=== PATIENT | male | born 1955 | race Caucasian/White ===

== ENCOUNTER 2021-07-14 14:53 | Day surgery (SDC) | payer MEDICARE ==
[2021-07-14] MEDS ORDERED: Depo-Medrol 40 MG/ML IM ONE (14:54)
[2021-07-14] MEDS ORDERED: Sodium Chloride 0.9% 10 ML FLUSH Syringe IJ ONE (14:54)
[2021-07-14] MEDS ORDERED: BENADRYL 50 MG/ML ONE (16:22)
[2021-07-14] MEDS ORDERED: Lactated Ringers 1,000 ML IV ONE (17:26)
[2021-07-14] MEDS ORDERED: DIPRIVAN 200 MG/20 ML IV ONE (17:58)
--- NOTE | 2021-07-14 19:05 | XRAY ---
Indication: Right L3-L5 transforaminal ASIA. Intraoperative fluoroscopy provided for 36 seconds. 4 digital spot image submitted for interpretation demonstrates posterior needle tips projecting over the right L3 and L4 nerve roots. Small amount of contrast injected for needle tip placement. Correlate with intraoperative findings/report.
--- NOTE | 2021-07-15 09:24 | XRAY ---
36 seconds fluoroscopy time in surgery for right L3-L5 transforaminal ASIA.
== END 2021-07-14 18:25 | disposition home or self-care (01) ==
LOC: SDC-PAIN 14:53
PROVIDERS: ATTEND Psychiatry & Neurology Pain Medicine
DX: M54.16 Radiculopathy, lumbar region (principal); I10 Essential (primary) hypertension; Z79.899 Other long term (current) drug therapy
CPT/HCPCS: 64483; 64484; 72100; 77003; J1030; J1200; J2704; Q9966